=== PATIENT | female | born 1970 | race Caucasian/White ===

== ENCOUNTER 2021-12-13 01:56 | Emergency (ER) | payer SELFPAY ==
[2021-12-13] MEDS ORDERED: SODIUM CHLORIDE 0.9% 1000 ML 1,000 ML IV ONE (02:14)
[2021-12-13 02:59] LABS: Basophils % (Auto) 0.3 % (0.0-1.8); Eosinophils # (Auto) 0.2 K/mm3 (0.0-0.4); Hematocrit 37.1 % (30.3-42.9); Hemoglobin 12.7 gm/dl (10.1-14.3); Lymphocytes # (Auto) 1.1 K/mm3 (1.2-5.4); Lymphocytes % (Auto) 21.1 % (13.4-35.0); Mean Corpuscular HGB Conc 34 % (30-34); Mean Corpuscular Volume 88 fl (79-97); Monocytes # (Auto) 0.4 K/mm3 (0.0-0.8); Platelet Count 182 K/mm3 (140-440); Red Blood Count 4.22 M/mm3 (3.65-5.03); Red Cell Distribution Width 13.3 % (13.2-15.2)
[2021-12-13 03:22] LABS: Alanine Aminotransferase 24 units/L (7-56); Blood Urea Nitrogen 17 mg/dL (7-17); Hemolysis Index 3
[2021-12-13 03:27] LABS: BUN/Creatinine Ratio 34; Bilirubin,Direct < 0.2 mg/dL (0-0.2)
[2021-12-13] MEDS ORDERED: INSULIN REGULAR, HUMAN 100 UNITS/1 ML IV ONE (03:32)
[2021-12-13 04:40] LABS: Bilirubin,Urine NEG (Negative); Blood,Urine NEG (Negative); Color,Urine Straw (Yellow); Protein,Urine <15 mg/dL mg/dL (Negative); Urobilinogen,Urine < 2 mg/dL (<2.0)
[2021-12-13 04:44] LABS: Mucus,Urine FEW /HPF
[2021-12-13 04:49] VITALS: BP 129/78
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
== END 2021-12-13 05:19 | disposition home or self-care (01) ==
LOC: ED 01:56
DX: E11.65 Type 2 diabetes mellitus with hyperglycemia (principal); F41.9 Anxiety disorder, unspecified; Z79.899 Other long term (current) drug therapy
CPT/HCPCS: 36415; 80048; 80076; 81001; 84703; 85025; 96361; 96374; 99284; Q9967; J1815